=== PATIENT | female | born 1990 | race Caucasian/White ===

== ENCOUNTER 2020-02-03 12:59 | Emergency (ER) | payer OTHER, SELFPAY ==
--- NOTE | ~2020-02-03 | XR_ITS ---
EXAMINATION: XR foot RT min 3V DATE: 02/03/2020 13:39 INDICATION: Right foot injury and pain. TECHNIQUE: 4 views of right foot were obtained. COMPARISON: None. FINDINGS: Bone alignment is normal. No fracture. Joint spaces are well maintained. There is an enthes ophyte at plantar aspect of calcaneal tuberosity. IMPRESSION: 1. No fracture. Reviewed, dictated and finalized at location B. [employer] MEDICAL DIRECTOR IMPRESSION: 1. No fracture.
[2020-02-03 13:00] VITALS: BP 125/71; PULSE 88; RESP 16; TEMP 36; O2SAT 99
--- NOTE | 2020-02-03 14:27 | ED.LOWEXIN ---
HPI - Extremity Injury (Lower) General Chief Complaint: Extremity Injury, Lower Stated Complaint: right foor injury Time Seen by Provider: 02/03/20 14:20 Source: patient Mode of arrival: ambulatory Limitations: no limitations History of Present Illness HPI Narrative: This is a 29-year-old female that presents the emergency department for right foot injury sustained 1 month ago. Reports she had been drinking and tripped and twisted the right foot. Reports she noted some mild swelling and pain to the area, but was not seen after the incident. Reports she stubbed her great toe again a couple of days ago which exacerbated the injury. Has still been able to walk on the foot. Denies decreased range of motion or numbness. Related Data Home Medications Medication Instructions Recorded Confirmed No Home Medications 02/03/20 02/03/20 Allergies Allergy/AdvReac Type Severity Reaction Status Date / Time No Known Allergies Allergy Verified 02/03/20 12:59 Review of Systems Review of Systems: Narrative: CONSTITUTIONAL: Denies fever MUSCULOSKELETAL: Reports joint pain, and myalgia. NEUROLOGIC: Denies numbness All systems reviewed & are unremarkable except as noted in HPI and below PMFSH Past Medical History Medical History (Updated 02/03/20 @ 14:30 by Lupe Sood PA-C) No active medical problems Social History Social History (Updated 02/03/20 @ 14:30 by Lupe Sood PA-C) Substance use: current Substance use type: marijuana Gender identity (if verbalized by the patient): Female Exam Narrative: Exam Narrative: GENERAL: Well-appearing, well-nourished, and in no acute distress. HEAD: Normocephalic, atraumatic. EYES: EOMI. EXTREMITIES: Normal range of motion. No edema or obvious deformity. Normal DP pulses. Normal sensation SKIN: Warm, dry, no rash. NEURO: No focal deficits. Alert and oriented x3. PSYCH: Normal mood and affect Course Vital Signs Vital signs: Vital Signs Temperature 96.8 F L 02/03/20 13:00 Pulse Rate 88 02/03/20 13:00 Respiratory Rate 16 02/03/20 13:00 Blood Pressure 125/71 02/03/20 13:00 Pulse Oximetry 99 02/03/20 13:00 Temperature 96.8 F L 02/03/20 13:00 Pulse Rate 88 02/03/20 13:00 Respiratory Rate 16 02/03/20 13:00 Blood Pressure 125/71 02/03/20 13:00 Pulse Oximetry 99 02/03/20 13:00 MDM - Extremity Injury (Lower) MDM Narrative Medical decision making narrative: Patient presents to the emergency department for right foot pain after an injury 1 month ago. Reports reinjuring it a couple of days ago. Right foot x-ray is without acute findings. Patient given Manuel wrap and instructed on care of foot sprain. She is to follow-up with primary care doctor. She was given warnings to return to the ER Imaging Data Radiologist's impression: ITS Impressions Foot X-Ray 02/03/20 13:47 IMPRESSION: 1. No fracture. Critical Care Time Critical Care Time Critical Care Time: No Discharge Plan Discharge Clinical Impression: Acute pain of right foot Patient Disposition: Home, Self-Care Condition: Stable Instructions: Foot Sprain (ED) Additional Instructions: Return to the emergency department if you experience fever, redness and swelling of your leg, or any other symptoms that are concerning to you Wear MANUEL wrap. Ice and elevate extremity. Pain medication as needed and directed. Follow up with your doctor for further care. Prescriptions: No Action No Home Medications RF: 0 Follow-up/Referrals: UNKNOWN,DOCTOR [Primary Care Provider] -
[2020-02-03 14:54] VITALS: BP 120/78; PULSE 88; RESP 17; O2SAT 100
== END 2020-02-03 14:55 | disposition home or self-care (01) ==
LOC: ANHED 14:37
PROVIDERS: Emergency Provider Emergency Medicine; PCP Emergency Medicine
DX: M79.671 Pain in right foot (principal)
CPT/HCPCS: 73630; 99283

== ENCOUNTER 2020-02-13 11:46 | Emergency (ER) | payer OTHER, SELFPAY ==
[2020-02-13 11:54] VITALS: BP 138/78; PULSE 105; RESP 16; TEMP 36; O2SAT 99
--- NOTE | 2020-02-13 11:58 | ED.WOUNDLAC ---
HPI - Wound/Laceration General Chief Complaint: Wound/Laceration Stated Complaint: laceration on finger Time Seen by Provider: 02/13/20 11:56 Source: patient and RN notes reviewed Mode of arrival: ambulatory Limitations: no limitations History of Present Illness HPI narrative: 29-year-old female presents concern for laceration to the dorsal aspect of her which hand right hand reports she got the hand caught in a car door last night. Denies musculoskeletal pain, bruising, swelling, redness. Reports laceration above the metacarpal on the third digit of the right hand. Reports she is up-to-date on her tetanus vaccine. Reports she cleaned the area with soap and water, applied antibiotic ointment and a bandage. Reports this occurred 10 hours ago. Related Data Home Medications Medication Instructions Recorded Confirmed No Home Medications 02/03/20 02/03/20 Allergies Allergy/AdvReac Type Severity Reaction Status Date / Time No Known Allergies Allergy Verified 02/03/20 12:59 Review of Systems Review of Systems: Narrative: CONSTITUTIONAL: Denies malaise, chills, sweats, or fever. SKIN: Reports laceration to the dorsal aspect of the right hand MUSCULOSKELETAL: Denies muscle skeletal pain, bruising, swelling NEUROLOGIC: Denies numbness, weakness All systems reviewed & are unremarkable except as noted in HPI and below PMFSH Past Medical History Medical History (Updated 02/13/20 @ 12:14 by Natalia Vieyra NP) No active medical problems Social History Social History (Updated 02/03/20 @ 14:30 by Lupe Sood PA-C) Substance use: current Substance use type: marijuana Gender identity (if verbalized by the patient): Female Comments At time of signature, agree with nursing past medical, surgical, social and family history. There is no relevant family history pertinent to the presenting complaint Exam Narrative: Exam Narrative: GENERAL: Well-appearing, well-nourished, and in no acute distress. HEAD: Normocephalic EYES: PERRLA, conjunctivae clear NECK: Supple. CHEST: Speaks in full sentences. No respiratory distress. HEART: Regular rate and rhythm. Normal and equal peripheral pulses. EXTREMITIES: Right hand and digits of hand have normal strength and sensation. 5/5 strength with digit flexion, extension. Range of motion normal. No clubbing, cyanosis, or edema noted. No tenderness. Normal digital cascade with flexion of fingers, median, ulnar and radial nerve intact. Normal sensation of each side of finger. Can perform 'okay' sign, 'cross over finger test of index and middle fingers' and 'thumbs up' sign. No scissoring. Normal thumb opposition. Good capillary refill and radial pulse. Distal capillary refill less than 3 seconds. SKIN: Warn, dry, intact, pink. Triangular-shaped partial skin avulsion noted above the third metacarpal of the right hand, skin flap is partially macerated, patient reports skin flap is numb. Tissue bed is beefy red without purulent drainage, surrounding erythema or edema, induration NEURO: Alert and oriented x3. PSYCH: Normal mood and affect Course Course Emergency Course: Steri-Strips applied to wound. Sutures not the best option at this time due to macerated tissue flap. Patient is aware of diagnosis, understands and agrees to treatment plan. Anticipatory guidance given. Patient agrees to follow-up as directed and is aware of reasons to seek care at the emergency department. Portions of this record may have been created with voice recognition software Vital Signs Vital signs: Vital Signs Temperature 96.8 F L 02/13/20 11:54 Pulse Rate 105 H 02/13/20 11:54 Respiratory Rate 16 02/13/20 11:54 Blood Pressure 138/78 02/13/20 11:54 Pulse Oximetry 99 02/13/20 11:54 Temperature 96.8 F L 02/13/20 11:54 Pulse Rate 105 H 02/13/20 11:54 Respiratory Rate 16 02/13/20 11:54 Blood Pressure 138/78 02/13/20 11:54 Pulse Oximetry 99 02/13/20 11:54 Reviewed. MDM
== END 2020-02-13 12:26 | disposition home or self-care (01) ==
PROVIDERS: Emergency Provider Nurse Practitioner; PCP Emergency Medicine
DX: S61.401A Unspecified open wound of right hand, initial encounter (principal); W23.0XXA Caught, crushed, jammed, or pinched between moving objects, initial encounter
CPT/HCPCS: 99212; G0463

== ENCOUNTER 2020-06-09 10:17 | Outpatient (CLI) | payer OTHER, SELFPAY ==
--- NOTE | ~2020-06-09 | XR_ITS ---
XR chest 2V DATE: 06/09/2020 10:42 INDICATION: Shortness of breath, wheezing and productive cough for 3 weeks. History of asthma. TECHNIQUE: PA and lateral views COMPARISON: 01/24/2015 2 view chest FINDINGS: Bilateral hyperinflation. Normal heart size. No pulmonary infiltrate or consolidation, pu lmonary vascular congestion or pleural effusion or pneumothorax. IMPRESSION: Bilateral hyperinflation Reviewed, dictated and finalized at location A. IMPRESSION: Bilateral hyperinflation
[2020-06-09 11:10] LABS: Hematocrit 40.7 % (37.0-47.0); Hemoglobin 14.1 g/dL (12.0-15.0); Mean Corpuscular HGB Conc 34.6 g/dl (32-36); Mean Corpuscular Hemoglobin 31.1 pg (26-34); Mean Corpuscular Volume 89.6 fl (80-100); Mean Platelet Volume 11.4 fl (7.4-10.4); Platelet Count Result 243 k/mm3 (150-375); Red Blood Count 4.54 M/mm3 (4.2-5.4); Red Cell Distribution Width 12.4 % (11.5-14.5); White Blood Count 7.8 K/mm3 (4.5-10.0)
[2020-06-09 11:21] LABS: Add Urine Microscopic? YES; Appearance Urine Cloudy (Clear); Bacteria Urine Trace /hpf; Bilirubin Urine Negative (Negative); Blood Urine Negative (Negative); Color Urine Yellow (Yellow); Glucose Urine UA Negative (Negative); Ketones Urine Trace mg/dL (Negative); Leukocyte Esterase Ur Negative LEU/UL (NEGATIVE); Mucus Urine Rare /lpf; Nitrate Urine Negative (Negative); Protein Urine 1+ mg/dL (Negative); Specific Grav Ur 1.027 (1.001-1.035); Squamous Epithelial Cell Urine Many /hpf (Few); Urobilinogen Urine Negative mg/dL (<2.0); WBC Urine 0-3 /hpf (0-3)
[2020-06-09 11:22] LABS: Alanine Aminotransferase 28 U/L (4-35); Albumin Level 4.8 g/dL (3.5-5.1); Alkaline Phosphatase 73 U/L (38-126); Anion Gap 9 mmol/L (8-16); Aspartate Amino Transferase 38 U/L (14-36); Bilirubin,Total 0.5 mg/dL (0.2-1.3); Blood Urea Nitrogen 16 mg/dL (7-17); Calcium 9.5 mg/dL (8.4-10.2); Carbon Dioxide 27 mmol/L (22-30); Chloride 102 mmol/L (98-107); Cholesterol 186 mg/dL (0-200); Estimated Glomerular Filt Rate > 60; Glucose 99 mg/dL (65-105); HDL Direct 110 mg/dL; Sodium 138 mmol/L (137-145); Triglycerides 70 mg/dL (<150)
[2020-06-09 11:33] LABS: LDL Cholesterol Direct 54 mg/dL
[2020-06-09 12:14] LABS: Free T4 Free Thyroxine 0.97 ng/mL (0.78-2.19)
[2020-06-11 19:32] LABS: Vitamin D 25 Hydroxy 16.9 ng/mL
== END 2020-06-09 10:18 | disposition home or self-care (01) ==
PROVIDERS: PCP Emergency Medicine; Visit Provider Emergency Medicine
DX: Z00.00 Encounter for general adult medical examination without abnormal findings (principal); J45.909 Unspecified asthma, uncomplicated; Z72.0 Tobacco use
CPT/HCPCS: 36415; 71046; 80053; 80061; 81001; 82306; 83036; 84439; 84443; 85027

== ENCOUNTER 2021-05-29 15:47 | Emergency (ER) | payer OTHER, SELFPAY ==
[2021-05-29 15:53] VITALS: BP 136/67; PULSE 119; RESP 20; TEMP 37.6; O2SAT 99
--- NOTE | 2021-05-29 15:59 | ED.SOB ---
HPI - SOB/Dyspnea General Chief Complaint: Upper Respiratory Infection Stated Complaint: sob Time Seen by Provider: 05/29/21 15:55 Source: patient Mode of arrival: ambulatory Limitations: no limitations History of Present Illness HPI Narrative: Ms. Yepez is a 30-year-old female patient presenting to the clinic today with complaints of shortness of breath, nonproductive cough, and chest heaviness. She reports that she just came from her primary care provider's office and had an handheld neb treatment done. States that they sent her here for evaluation. At the time of assessment patient is crying on the exam table and anxious. When I asked why she was crying she stated she wanted to drink water and nobody would give her one. She is able to speak in full sentences currently and her SPO2 is 99% on room air. Heart rate is 119. Patient is having increased work of breathing due to crying. Shortness of breath symptoms began approximately at 7:00 this morning when she woke up. She stated that when she got up she was having a difficult time breathing. History of what sounds like bronchitis or asthma in the past. Has used a hand-held nebulizer and butyryl inhalers before. States that she was with a gentleman last night who was coughing a lot and is concerned that she may have got sick from him. Went to her PCP this afternoon for these complaints and was given a handheld neb treatment and a referral to the [facility] for further evaluation.. She is a current smoker. Related Data Home Medications Medication Instructions Recorded Confirmed drospirenone (contraceptive) 4 mg DIRECTED 05/29/21 05/29/21 [[place]] Allergies Allergy/AdvReac Type Severity Reaction Status Date / Time No Known Allergies Allergy Verified 02/03/20 12:59 Review of Systems Review of Systems: Pertinent positives per HPI. Patient denies any fever, chills, rash, headache, visual changes, dizziness, cough, runny nose, sore throat, palpitations, nausea, vomiting, diarrhea, constipation, abdominal pain, or any urinary issues. [facility] Past Medical History Medical History Asthma Family History Family History Mother Cervical cancer Social History Social History Smoking status: Current every day smoker Tobacco type: e-cigarettes/vaping Alcohol intake: unknown Substance use type: marijuana Gender identity (if verbalized by the patient): Female Comments At the time of my signature, I reviewed and agree with the nursing past medical, surgical, social, and family history. There is no relevant family history pertinent to the patient complaint. Exam Narrative: General: Well-developed, well nourished, in no apparent distress Head: Normocephalic, atraumatic. Cardio: Regular rate and rhythm, tachycardic, s1 and s2 normal, no murmur appreciated. Resp: Mildly diminished in the lower bases otherwise clear to auscultation bilaterally, no rhonchi, rales, wheezing or rubs. Extremities: No deformity, no edema, no cyanosis, capillary refill less than 2 seconds, peripheral pulses palpable and strong. Integumentary: [place], warm, and dry, intact without lesion, no rashes. Course Course Emergency Course: Portions of this record may have been created with voice recognition software. Level of Care: Express Care Visit Vital Signs Vital signs: Vital Signs Temperature 37.6 C H 05/29/21 15:53 Pulse Rate 119 H 05/29/21 15:53 Respiratory Rate 20 05/29/21 15:53 Blood Pressure 136/67 05/29/21 15:53 Pulse Oximetry 99 05/29/21 15:53 Temperature 37.6 C H 05/29/21 15:53 Pulse Rate 119 H 05/29/21 15:53 Respiratory Rate 20 05/29/21 15:53 Blood Pressure 136/67 05/29/21 15:53 Pulse Oximetry 99 05/29/21 15:53 Vital signs reviewed MDM - SOB/Dyspnea
== END 2021-05-29 16:19 | disposition home or self-care (01) ==
PROVIDERS: Emergency Provider Nurse Practitioner Family; PCP Emergency Medicine
DX: J45.901 Unspecified asthma with (acute) exacerbation (principal); F17.290 Nicotine dependence, other tobacco product, uncomplicated; F12.90 Cannabis use, unspecified, uncomplicated
CPT/HCPCS: 99213; G0463